=== PATIENT | male | born 1955 | race Caucasian/White ===

== ENCOUNTER 2018-01-31 06:36 | Day surgery (SDC) | payer BC ==
[~2018-01-31] VITALS: Ht 182.9 cm; Wt 121.6 kg
[2018-01-31] MEDS ORDERED: LR 1,000 ML IV SCH (09:21)
[2018-01-31] MEDS ORDERED: MEPERIDINE HCL/PF 25 MG/ML DISP.SYRIN IVP PRN (09:30)
[2018-01-31] MEDS ORDERED: MORPHINE 4 MG/ML INJ. SYRINGE IVP PRN ×3 (09:30)
[2018-01-31] MEDS ORDERED: FAMOTIDINE PF 20 MG/2 ML VIAL ONE (09:34)
[2018-01-31] MEDS ORDERED: HYDROcodone/ACETAMIN 5-325 MG TAB (NORCO/ VICODIN) PO PRN (09:45)
[2018-01-31] MEDS ORDERED: SUCCINYLCHOLINE CHLORIDE 20 MG/ML(QUELICIN) IVP ONE (09:55)
[2018-01-31] MEDS ORDERED: BUPIVACAINE /PF 0.25% 30 ML VIAL INJ ONE (09:55)
[2018-01-31] MEDS ORDERED: KETOROLAC TROMETHAMINE 30 MG VIAL IVP ONE (09:55)
[2018-01-31] MEDS ORDERED: NS 100 ML BAG IV ONE (09:55)
[2018-01-31] MEDS ORDERED: SEVOFLURANE 15 MIN GAS INH ONE (09:55)
[2018-01-31] MEDS ORDERED: ONDANSETRON HCL 4 MG/2 ML VIAL IVP ONE (09:55)
[2018-01-31] MEDS ORDERED: ROCURONIUM BROMIDE 10 MG/ML (ZEMURON) IV ONE (09:55)
[2018-01-31] MEDS ORDERED: PROPOFOL 200MG/ 20ML VIAL (DIPRIVAN) IV ONE (09:55)
[2018-01-31] MEDS ORDERED: fentaNYL CITRATE/PF 100 MCG/2 ML AMP IVP ONE (09:55)
[2018-01-31] MEDS ORDERED: LR 1,000 ML IV.SOLN IV ONE (09:55)
[2018-01-31] MEDS ORDERED: fentaNYL CITRATE 250 MCG/5 ML AMP IV ONE (09:55)
[2018-01-31] MEDS ORDERED: DEXAMETHASONE SOD PHOSPHATE 4 MG/ML VIAL IVP ONE (09:55)
[2018-01-31] MEDS ORDERED: MIDAZOLAM HCL 5 MG/ML VIAL (VERSED) IV ONE (09:55)
[2018-01-31 10:41] VITALS: BP_SYST 154
== END 2018-01-31 14:00 | disposition home or self-care (01) ==
LOC: SDS 06:36 → SMU 06:36 → SDS 14:00
PROVIDERS: ATTEND Otolaryngology Plastic Surgery within the Head & Neck
DX: J32.9 Chronic sinusitis, unspecified (principal); J33.9 Nasal polyp, unspecified; J45.909 Unspecified asthma, uncomplicated; H69.80 Other specified disorders of Eustachian tube, unspecified ear; H65.499 Other chronic nonsuppurative otitis media, unspecified ear; K21.9 Gastro-esophageal reflux disease without esophagitis; I10 Essential (primary) hypertension; I12.9 Hypertensive chronic kidney disease with stage 1 through stage 4 chronic kidney disease, or unspecified chronic kidney disease; N18.3 Chronic kidney disease, stage 3 (moderate); Z68.37 Body mass index [BMI] 37.0-37.9, adult; Z79.899 Other long term (current) drug therapy; E66.01 Morbid (severe) obesity due to excess calories; G47.33 Obstructive sleep apnea (adult) (pediatric)
CPT/HCPCS: 31267; 31296; 87070; 87075; 88305; C1726; J0330; J1100; J1885; J2250; J2405; J2704; J3010 ×2; J3490 ×2; J7120